=== PATIENT | male | born 1940 | race Caucasian/White ===

== ENCOUNTER 2022-08-04 12:31 | Outpatient (RCR) | payer MEDICARE, SELFPAY ==
--- NOTE | 2022-08-04 16:06 | PT.OPE ---
PT [place] [facility] Eval PT [facility] Out[facility] Eval Start: 08/04/22 12:48 Freq: Status: Active Protocol: Document 08/04/22 16:04 CJT (Rec: 08/04/22 16:06 CJT [id number]) E-signed By Walter Garcia PT Physical Therapy Outpatient Evaluation Insurance Information Recert Due Date 10/03/22 Insurance Name Medicare B Insurance Information/Comments Medicare Advantage Medical Diagnosis M25.551 - R hip pain Treating Diagnosis M25.551 - R hip pain Referring MD Arora, Rom CALDWELL Subjective Subjective Pt presents for evaluation of R hip pain following shoveling his driveway about 1 month ago. Pt was shoveling snow and notes he felt something click in his R hip and he could barely get into the house. The pain got worse over the next few days. Pain is worse in the AM. Pts pain remained unchanged for about three weeks an over the past week he has noted slight progress in his pain. pt points to his R lateral hip as the source of his pain and notes that the pain is made worse when going from sitting to standing. Pain Comments Date of Last Physician Visit 07/16/22 Current Work Status Retired Preferred Name Del Precautions Treatment Precautions/Contraindications Spouse: Heaven Therapy Limitations/Systems Review Not Limited Objective Other/Pertinent Objective Lumbar ROM Extension - 15 Flexion - can easily bend forward and reach toes R/L Side Bend - 15/15 *feels a pull on R when leaning to L R/L Rotation - mild impairments B R Hip ROM Flexion - 115 IR/ER - 27/15 Extension - <5 L Hip ROM Flexion - 115 IR/ER - 27/25 Extension - <5 R knee ROM - WNL L knee ROM - WNL R Hip Strength Flexion - 4+/5 MMT Abduction - 3+/5 MMT Adduction - 5/5 MMT IR - 5/5 MMT ER - 5/5 MMT Extension - 3+/5 MMT L Hip Strength Flexion - 5/5 MMT Abduction - 4+/5 MMT Adduction - 5/5 MMT IR - 5/5 MMT ER - 5/5 MMT Extension - 4-/5 MMT R knee Extension - 5/5 MMT R Knee Flexion - 5/5 MMT L knee Extension - 5/5 MMT L knee Flexion - 5/5 MMT R ankle DF - 5/5 MMT L ankle DF - 5/5 MMT Palpation: pt reports pain/ tenderness with palpation to R TFL, glute med, piriformis, and ITB Gait: uses 4WW, no gait deviations detected today Testing for disc herniation and radicular symptoms is negative today Assessment Assessment/Impression Pt is an 82 year old male who presents to OP PT clinic with complaints of R hip pain ongoing for about 1 month now after experiencing a pop in his R hip while shoveling his driveway. Pts pain is located in his R TFL region and is made worse when transitioning from sitting to standing. He denies numbness, tingling, weakness in the legs following the incident. Pts pain was unchanged for about 3 weeks and over the last week or so has started to slowly improve. Deficits are noted in pts strength and ROM of R>L LEs ( see objective). At this time it is not 100% clear what the source of Del's pain is, but it seem to be related to his R TFL muscle and/or possible strain to his R hamstring origin at ischial tuberosity. I do fear that he may have strained either or both of these muscles which has led to subsequent pain. Pts hip abduction and extension strength are quite weak so we will focus on strengthening and stretching his affected muscles and monitor his pain throughout therapy. I think some strengthening to B hips will do him some good for allowing these muscles to properly heal. The nature of the pts condition was explained and all questions were answered to the pts satisfaction. Skilled PT services are medically necessary to address deficits and return patient to highest level of function. Recommend physical therapy sessions 1-2/ week for 8 weeks. Pt and his Heaven agree with this plan. Printout of HEP was given for I completion and pt gives verbal understanding of each exercise. Primary Functional Limitations Standing, [id number] transfers Plan of Care Rehabilitation Potential Good Physical Therapy Goals STG - To be completed in 2-3 weeks: 1. Pt will report reduction in R hip pain by factor of 2 so that they may perform all ADLs with tolerable level of pain. 2. Pt will demonstrate ability to perform pelvic tilt with good coordination as indication of appropriate firing of pelvic and lumbar stabilizing muscles to provide greater support for pelvis and lumbar spine. 3. Pt will demonstrate 5/5 MMT for all LE motions without reproduction of pain to provide greater support to pelvis and lumbar spine. LTG - To be completed in 8-12 weeks: 1. Pt to be I with HEP so that they may I manage progression of symptoms. 2. Pt will report ability to sleep through the night without waking due to pain so that they may wake well rested with reduced mental fatigue during working hours. 3. Pt will report absence of anterolateral hip pain when transitioning from sitting to standing after prolonged period of sitting as indication of reduced strain on these soft tissue structures when in WB position . 4. Pt will demonstrate 5/5 MMT for both upper and lower abdominals to provide greater support to pelvis and lumbar spine. Treatment Plan/Direct Interventions Gait Training,Heat,Ice/Cold/ Vasopneumatic,Joint Mobilization,Manual Therapy, Neuromuscular Re-ed,Self-Care/ Home Management,Therapeutic Activities,Therapeutic Exercises Frequency/Duration 1-2/week for 8 weeks Patient Will Be Discharged From Therapy Completion of LTG(s),Skills Plateau,Independent w/HEP, Independently Progressing Evaluation Billing Untimed Code Treatment Minutes 35 PT Eval No Charge No Complexity Low Certification Information Initial Certification Date 08/04/22 Ending Certification Date 10/03/22 Provider Signature Shows Agreement With POC & Medical Necessity Physician Signature & Date Requested Please Sign/Date Here Physician Comment/Change : Physician NPI Number #
== END 2022-10-06 14:48 | disposition home or self-care (01) ==
PROVIDERS: PCP Internal Medicine; Visit Provider Internal Medicine
DX: M25.551 Pain in right hip (principal); Z51.89 Encounter for other specified aftercare
CPT/HCPCS: 97110; 97140; 97161

== ENCOUNTER 2022-10-15 13:07 | Outpatient (CLI) | payer MEDICARE, SELFPAY | END 2022-10-15 13:08 | disposition home or self-care (01) | PROVIDERS: PCP Internal Medicine; Visit Provider Internal Medicine | DX: Z00.00 Encounter for general adult medical examination without abnormal findings (principal); I10 Essential (primary) hypertension; Z12.5 Encounter for screening for malignant neoplasm of prostate; Z13.6 Encounter for screening for cardiovascular disorders | CPT/HCPCS: 80053; 80061; 84153 ==

== ENCOUNTER 2023-01-06 15:59 | Outpatient (CLI) | payer MEDICARE, SELFPAY | END 2023-01-06 16:00 | disposition home or self-care (01) | PROVIDERS: PCP Internal Medicine; Visit Provider Nurse Practitioner Family | DX: M79.10 Myalgia, unspecified site (principal); I10 Essential (primary) hypertension; G20 Parkinson's disease | CPT/HCPCS: 83519; 85651; 86140 ==

== ENCOUNTER 2024-12-22 09:26 | Outpatient (CLI) | payer MEDICARE, SELFPAY | END 2024-12-22 09:27 | disposition home or self-care (01) | LOC: NFLDREF 12-26 14:59 | PROVIDERS: PCP Internal Medicine; Referring Provider Internal Medicine; Visit Provider Internal Medicine | DX: E78.5 Hyperlipidemia, unspecified (principal); I10 Essential (primary) hypertension; Z12.5 Encounter for screening for malignant neoplasm of prostate | CPT/HCPCS: 80053; 80061; G0103 ==

== ENCOUNTER 2025-02-16 13:21 | Outpatient (CLI) | payer MEDICARE, SELFPAY | END 2025-02-16 13:22 | disposition home or self-care (01) | PROVIDERS: PCP Internal Medicine; Visit Provider Internal Medicine | DX: R53.83 Other fatigue; R82.90 Unspecified abnormal findings in urine; Z13.0 Encounter for screening for diseases of the blood and blood-forming organs and certain disorders involving the immune mechanism | CPT/HCPCS: 82728; 84443; 87086 ==

== ENCOUNTER 2025-06-23 09:34 | Inpatient (IN) | payer MEDICARE, SELFPAY ==
[2025-06-23] VITALS (28 sets, daily range): BP systolic 110–139; BP diastolic 53–86; PULSE 66–87; RESP 14–18; TEMP 37–37.5; O2SAT 92–100; BMI 26.6; BMI 23.1; BMI 23.2
--- NOTE | 2025-06-23 10:38 | ED.WEAKNESS ---
HPI - Weakness General Chief complaint: Weakness Stated complaint: weakness Time Seen by Provider: 06/23/25 10:31 History of Present Illness HPI Narrative: This 85-year-old male comes in with his because of worsening weakness over the past 2 or 3 days. He normally ambulates at home without a walker or assistance. He does have a walker at home and his states that she tried to have him use that last evening with some limited results. The patient does have Parkinson's. His reports incontinence of urine. She states that he is unable to get up and ambulate without assistance. He did come in by private vehicle. Other family members were able to assist him to get into the vehicle. He does not report any pain or injury event. His states that he seemed to be having decreased responses recently. There is no report of unilateral weakness but rather generalized weakness. Related Data Home Medications ?Medication ?Instructions ?Recorded ?Confirmed Lactobacillus cap PO DAILY 07/09/22 02/16/25 acidophilus-Bifidobac.animalis 31 billion cell capsule ibuprofen 200 mg tablet 200 mg PO Q6H PRN 07/09/22 02/16/25 multivitamin,tx-minerals 1 tab PO QDAY 07/09/22 02/16/25 naproxen 250 mg tablet 250 mg PO BID PRN 07/09/22 02/16/25 omega-3 fatty acids 1,000 mg 1,000 mg PO QDAY 07/09/22 06/23/25 capsule Previous Rx's ?Medication ?Instructions ?Recorded gabapentin 100 mg capsule 100 mg PO TID PRN Nerve Pain #60 01/19/23 caps gentamicin 0.3 % eye drops 3 drp otic (ear) TID #5 mL 11/11/23 amlodipine 5 mg tablet 5 mg PO QDAY #90 tabs 12/27/24 carbidopa 25 mg-levodopa 100 mg 1 tab PO 3XD Parkinson's #270 tabs 12/27/24 tablet hydrochlorothiazide 25 mg tablet 25 mg PO QDAY Hypertension #90 tabs 12/27/24 omeprazole 40 mg capsule,delayed 40 mg PO QDAY GERD #90 caps 12/27/24 release Allergies Allergy/AdvReac Type Severity Reaction Status Date / Time No Known Drug Allergies Allergy Verified 06/23/25 09:58 Review of Systems Status of ROS: Reports: 10 or more systems reviewed and unremarkable except as noted in History and below Narrative: Constitutional: No fevers, no weight gain or loss. Eyes: No discharge. No vision changes. HENT: No congestion, no sore throat, no ear pain. Cardiovascular: No chest pain, no palpitations. Respiratory: No shortness of breath, no wheezes, no cough. Gastrointestinal: No abdominal pain, no vomiting, no diarrhea. Genitourinary: Urinary incontinence. Musculoskeletal: Normal range of motion. Skin: No rashes, no pruritis. Neurological: No dizziness, sensory change, speech change. Generalized weakness as described above. Endo/Heme/Allergies: No bruising or bleeding. No polydipsia. Pysch: no suicidality, no anxiety, no insomnia. All other systems reviewed and are negative. [facility] Medical History (Updated 06/23/25 @ 12:33 by Irving Bean MD) Fatigue ?R53.83 - Other fatigue (ICD-10) GERD (gastroesophageal reflux disease) ?K21.9 - Gastro-esophageal reflux disease without esophagitis (ICD-10) Trochanteric bursitis ?M70.60 - Trochanteric bursitis, unspecified hip (ICD-10) Social History (Updated 12/27/24 @ 14:06 by Caitlin Carrillo ~ [facility]) What is your current living situation?: I presently have a place to live Problems where you live: no known problems In the past 12 months, utilities in danger of being shut off: no In past 12 months, lack of transportation kept you from medical appts, meetings, work, or getting things needed for daily living: no In the past 12 mos, have been you worried that your food would run out before you had money to buy more?: never true In the past 12 mos, the food you bought just didn't last and you didn't have money to buy more?: never true Smoking Status: Never smoker How often does anyone, including family, friends and others, physically hurt you: never How often does anyone, including family, friends and others, insult or talk down to you: never How often does anyone, including family, friends and others, threaten you with harm: never How often does anyone, including family, friends and others, scream or curse at you: never Exam Narrative: Exam Narrative: Constitutional: Well-developed, well-nourished, no acute distress. HEENT: Normocephalic, atraumatic. Neck: Normal range of motion. Nontender. Supple. Heart: Regular. No murmurs. Normal rate. Intact distal pulses. Lungs: Clear to auscultation. No chest discomfort. No wheezes, rhonchi, or rales. Abdomen: Normal bowel sounds. Nontender. No rebound tenderness. Genitalia: Deferred. Back: No midline tenderness. Normal range of motion. Extremities: Normal range of motion. No injury. Skin: Intact. No rash. Warm. No erythema or pallor. Neurologic: No altered sensation. No weakness. Alert and oriented. No facial asymmetry. Tongue is midline. [id number] is normal. No pronator drift. 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 Able to raise each leg from the bed. Parkinson's tremor is present. Psychiatric: No suicidality. No anxiety or depression. No insomnia. Nursing notes and vitals signs are reviewed. Const: Vital Signs, click to edit/add: Vital Signs - 24 hr 06/23/25 09:59 06/23/25 10:06 06/23/25 10:07 Temperature 99.5 F Pulse Rate 76 76 Pulse Rate [Pulse Oximeter] 84 Respiratory Rate 18 18 Blood Pressure 119/60 Blood Pressure [Le ft Upper Arm] 139/68 Pulse Oximetry 94 93 93 Oxygen Delivery Me thod Room Air 06/23/25 10:15 06/23/25 10:30 06/23/25 10:32 Temperature Pulse Rate 71 67 68 Pulse Rate [Pulse Oximeter] Respiratory Rate 16 Blood Pressure 110/58 L Blood Pressure [Le ft Upper Arm] Pulse Oximetry 93 93 93 Oxygen Delivery Me thod 06/23/25 10:45 06/23/25 11:00 06/23/25 11:02 Temperature Pulse Rate 72 68 69 Pulse Rate [Pulse Oximeter] Respiratory Rate 16 Blood Pressure 123/62 Blood Pressure [Le ft Upper Arm] Pulse Oximetry 94 95 95 Oxygen Delivery Me thod 06/23/25 11:19 06/23/25 12:00 Temperature 99.5 F Pulse Rate 73 Pulse Rate [Pulse Oximeter] Respiratory Rate Blood Pressure Blood Pressure [Le ft Upper Arm] Pulse Oximetry 95 Oxygen Delivery Me thod Course Vital Signs Vital signs: Initial Vital Signs Temperature 99.5 F 06/23/25 09:59 Temperature Source Temporal Artery Scan 12/26/25 09:59 Pulse Rate 84 06/23/25 09:59 Respiratory Rate 18 06/23/25 09:59 Blood Pressure 139/68 06/23/25 09:59 Blood Pressure Mean 91 06/23/25 09:59 Pulse Oximetry 94 06/23/25 09:59 Oxygen Delivery Method Room Air 06/23/25 09:59 Vital Signs Temperature 99.5 F 06/23/25 09:59 Pulse Rate 84 06/23/25 09:59 Respiratory Rate 18 06/23/25 09:59 Blood Pressure 139/68 06/23/25 09:59 Pulse Oximetry 94 06/23/25 09:59 Oxygen Delivery Method Room Air 06/23/25 09:59 Temperature 99.5 F 06/23/25 12:00 Pulse Rate 73 06/23/25 11:19 Respiratory Rate 16 06/23/25 11:02 Blood Pressure 123/62 06/23/25 11:02 Pulse Oximetry 95 06/23/25 11:19 Oxygen Delivery Method Room Air 06/23/25 09:59 MDM - Weakness MDM Narrative Medical decision making narrative: This 85-year-old male comes in with his because of worsening weakness over the past 2 or 3 days. The patient arrives with normal exam and has strength to raise each leg from the bed but is not able to get up and ambulate without assistance. Labs are acquired and returned with reassuring results except his sodium is low at 125. This may be contributing significantly enough to his weakness. Urinalysis returns without sign of infection. I did speak with the hospitalist on-call, Dr. Parkinson, who does agree to his admission into the hospital to replenish is sodium deficit. Lab Data Labs: Lab Results 06/23/25 06/23/25 06/23/25 Range/Units 10:06 10:55 11:15 WBC 7.96 (4.50-11.00) K/uL RBC 4.57 (4.30-5.90) m/uL Hgb 13.5 (13.5-17.5) gm/dL Hct 40.3 (37.0-53.0) % MCV 88 (80-100) fL MCH 30 (26-34) pg MCHC 34 (32-36) gm/dL RDW Coeff of Ashley 12.7 (11.5-15.5) % Plt Count 155 (140-440) K/uL Neut % (Auto) 83.2 H (42.0-72.0) % Lymph % (Auto) 5.8 L (20-44) % [place] % (Auto) 10.4 (0.0-11.0) % Eos % (Auto) 0.0 (0.0-7.0) % Baso % (Auto) 0.3 (0.0-3.0) % Neut # (Auto) 6.60 (1.7-7.0) K/uL Lymph # (Auto) 0.50 L (0.90-2.90) K/uL [place] # (Auto) 0.80 (0.00-0.90) K/UL Eos # (Auto) 0.00 (0.00-0.50) K/uL Baso # (Auto) 0.02 (0.00-0.30) K/uL Abs Immat Gran (auto) 0.02 (0.00-0.30) K/uL Imm/Tot Granulo (auto) 0.3 % Sodium 125 L (135-149) mmol/L Potassium 3.6 (3.6-5.1) mmol/L Chloride 91 L (96-114) mmol/L Carbon Dioxide 28 (20-32) mmol/L Anion Gap 6 L (7-15) mEq/L BUN 18 (7-30) mg/dL Creatinine 0.9 (0.5-1.5) mg/dL Estimated Creat Clear 49.58 Estimated GFR 83 ml/min Glucose 100 (60-115) mg/dL Calcium 8.7 (8.4-10.6) mg/dL Urine Color Rebecca A (Yellow) Urine Appearance Clear (Clear) Urine pH 6.0 (5.0-8.5) Ur Specific [place] 1.020 (1.000-1.030) Urine Protein 1+ A (Negative) Urine Glucose (UA) Negative (Negative) Urine Ketones 2+ A (Negative) Urine Blood Trace-intact A (Negative) Urine Nitrite Negative (Negative) Urine Bilirubin 1+ A (Negative) Urine Urobilinogen 1.0 (0.2-1.0) Ur Leukocyte Esterase Negative (Negative) Urine RBC 0-2 (0-2) Urine WBC 2-5 (0-5) Ur Squamous Epith Cells Few (None-Few) Urine Bacteria Few A (None) Fine Granular Casts Few A (None) SARS-CoV-2 (PCR) Negative SARS-CoV-2 (Negative) Influenza Type A (PCR) Negative PCR FLU A (Negative) Influenza Type B (PCR) Negative PCR FLU B (Negative) RSV (PCR) Negative PCR RSV (Negative) ECG Data Attestation: I personally reviewed and interpreted this ECG as follows: Interpretation: Normal sinus rhythm. Rate is 68 beats per minute. There are no ST or T-wave abnormalities. Discharge Plan Discharge Clinical Impression: Hyponatremia, Weakness Patient Disposition: Admitted As Observation Condition: Unchanged
[2025-06-23 10:50] LABS: PCR FLU A Negative PCR FLU A (Negative); PCR FLU B Negative PCR FLU B (Negative); PCR RSV Negative PCR RSV (Negative); SARS PCR* Negative SARS-CoV-2 (Negative)
[2025-06-23 11:06] LABS: Hematocrit* 40.3 % (37.0-53.0); Hemoglobin* 13.5 gm/dL (13.5-17.5); Immature Granulocytes Abs Auto 0.02 K/uL (0.00-0.30); Immature Granulocytes Pct Auto 0.3 %; Mean Corpuscular HGB Conc 34 gm/dL (32-36); Mean Corpuscular Hemoglobin 30 pg (26-34); Mean Corpuscular Volume 88 fL (80-100); RDW Coefficient of Variation % 12.7 % (11.5-15.5); Red Blood Count* 4.57 m/uL (4.30-5.90); White Blood Count* 7.96 K/uL (4.50-11.00)
[2025-06-23 11:13] LABS: Lymphocytes Absolute Auto 0.50 K/uL (0.90-2.90); Slide Review Reflex No
[2025-06-23 11:18] LABS: Chloride* 91 mmol/L (96-114); Potassium* 3.6 mmol/L (3.6-5.1); Sodium* 125 mmol/L (135-149)
[2025-06-23 11:21] LABS: Anion Gap 6 mEq/L (7-15); Blood Urea Nitrogen* 18 mg/dL (7-30); Calcium* 8.7 mg/dL (8.4-10.6); Carbon Dioxide* 28 mmol/L (20-32); Creatinine* 0.9 mg/dL (0.5-1.5); Est. Creatinine Clearance* 49.58; Estimated Glomerular Filt Rate 83 ml/min; Glucose* 100 mg/dL (60-115)
[2025-06-23 11:24] LABS: Appearance Urine Clear (Clear)
--- NOTE | 2025-06-23 14:32 | P.IMHP_ITS ---
Assessment and Plan Assessment and plan (1) Weakness: Problem comment: -generalized -no acute infectious etiology yet identified; CXR ordered; no change in mental status; may be in setting of acute hyponatremia -PT/OT consults Status: Acute (2) Dizziness: Problem comment: -chronic, acutely worsened, occurs with positional changes, resolves after a few minutes -no falls but close -orthostatics ordered Status: Acute (3) Cough: Problem comment: -just developed in past 24 hours, reported as mucus-y -afebrile, no leukocytosis, triple swab negative, no hypoxia or dyspnea -CXR ordered - no acute cardiopulmonary process Status: Acute (4) Hyponatremia: Problem comment: -Na 125, baseline 134 per limited EMR review -increased free water intake past few days, poor oral intake -fluid restriction 1500ml, protein supplements, 500cc NS bolus -hold HCTZ -recheck Na at 1900 Status: Acute (5) Parkinson's disease: Problem comment: -noted increased fatigue and slowed cognition per PCP EMR note 01/2025 -right side tremor -continue sinemet Status: Acute (6) Hypertension: Problem comment: -continue amlodipine -hold HCTZ iso hyponatremia Status: Acute (7) GERD (gastroesophageal reflux disease): Problem comment: -continue PPI Status: Acute Total Time Spent Total Time Spent: Today I spent 75 minutes seeing the patient, reviewing Expanse and EPIC notes/diagnostics, discussing the care plan with our care time that includes social work, PT/OT, pharmacy, RT, residential and documenting my impressions and plan in the medical record. 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 Patient is seen with and daughter at bedside. Reports increasing generalized weakness over the past 48 hours. Has been using his walker at home which he does not typically use. However, sounds like he should be as his gait is poor and he has had near falls. His reports his mobility and stability have slowly worsened since the summer. He denies any headaches over the past few days. Dizziness has been slightly worse than usual. Occurs with positional changes from sitting or lying to standing. Resolves within a few minutes. No vertiginous symptoms. No change in mental status. also reports slow cognitive decline, typically worse in the evenings. This was discussed with PCP back in January. Denies chest pain or tightness. No shortness of breath. Has developed a mucousy cough really in the past 24 hours. No fevers. Denies abdominal pain or nausea. No vomiting. No change in stools. Last BM was this morning. No blood noted in the stools. No change in urination. Frequency is about every hour. Was complaining of right leg pain earlier in the week but tells me this has resolved. No recent changes in medication. Uncertain of compliance with medications. Did try CBD gummies but was unable to tolerate these as a half of a gummy worsened his dizziness. PCP is Dr. Arora. last Medicare Annual exam was December 2024. Never smoked. Last alcohol drink was probably 20 years ago. Wishes to be DNR/DNI. Review of Systems Narrative: REVIEW OF SYSTEMS: Complete review of systems performed and negative unless otherwise stated in HPI or below. Medical Decision Making Medical Decision Making Code Status: DNR/DNI Has patient completed a Health Care Directive: No During This Stay, Who Would You Like To Make Decisions For You In The Event You Are Unable To Make Them For Yourself?: PFSH PFS Medical History Dizziness ?R42 - Dizziness and giddiness (ICD-10) Fatigue ?R53.83 - Other fatigue (ICD-10) GERD (gastroesophageal reflux disease) ?K21.9 - Gastro-esophageal reflux disease without esophagitis (ICD-10) Trochanteric bursitis ?M70.60 - Trochanteric bursitis, unspecified hip (ICD-10) Social History What is your current living situation?: I presently have a place to live Problems where you live: no known problems In the past 12 months, utilities in danger of being shut off: no In past 12 months, lack of transportation kept you from medical appts, meetings, work, or getting things needed for daily living: no In the past 12 mos, have been you worried that your food would run out before you had money to buy more?: never true In the past 12 mos, the food you bought just didn't last and you didn't have money to buy more?: never true Highest level of school completed/degree received: some college, no degree Smoking Status: Never smoker Do you use any of these nicotine containing products: None Second hand tobacco smoke exposure: No How often do you have a drink containing alcohol: never How often do you have six or more drinks on one occasion: Never AUDIT-C Alcohol total score: 0 Non-prescribed substance use: denies use Caffeine: No How often does anyone, including family, friends and others, physically hurt you : never How often does anyone, including family, friends and others, insult or talk down to you: never How often does anyone, including family, friends and others, threaten you with harm: never How often does anyone, including family, friends and others, scream or curse at you: never service: No Meds Home Medications and Allergies Home Medications ?Medication ?Instructions ?Recorded ?Confirmed ?Type Lactobacillus 1 cap PO DAILY 07/09/2205/30 History acidophilus-Bifidobac.animalis 31 billion cell capsule multivitamin,tx-minerals 1 tab PO DAILY 07/09/2205/30 History omega-3 fatty acids 1,000 mg 1,000 mg PO DAILY 3 06/23/25 History capsule amlodipine 5 mg tablet 5 mg PO QDAY #90 tabs 06/23/25 Rx carbidopa 25 mg-levodopa 100 mg 1 tab PO 3XD Parkinson 's #270 tabs 12/27/24 06/23/25 Rx tablet hydrochlorothiazide 25 mg tablet 25 mg PO DAILY Hypert ension 06/23/25 06/23/25 History omeprazole 40 mg capsule,delayed 40 mg PO DAILY GERD 1 08/24/24 06/23/25 History release Allergies Allergy/AdvReac Type Severity Reaction Status Date / Time No Known Drug Allergies Allergy Verified 06/23/25 09:58 Exam Narrative: Exam Narrative: PHYSICAL EXAM General: Pleasant, Appropriately conversant, NAD HEENT: Normocephalic, atraumatic, sclera white, EOMI, oral mucosa moist Cardiovascular: RRR, S1S2. No pitting edema Pulmonary: CTA bilaterally without rhonchi, rales, expiratory wheezes. No dyspnea on room air Abdominal: Soft, nondistended, NTTP Neurological: Alert, answering questions appropriately so slightly slowed, cranial nerves intact, no focal findings Extremities: No gross joint deformity or swelling. AROMI. no palpable tenderness. Negative Homans. Neurovascularly intact Skin: Warm, dry. Const: Vital Signs, click to edit/add: Vital Signs - 24 hr 06/23/25 09:59 06/23/25 10:06 06/23/25 10:07 Temperature 99.5 F Pulse Rate 76 76 Pulse Rate [Pulse Oximeter] 84 Respiratory Rate 18 18 Blood Pressure 119/60 Blood Pressure [Le ft Upper Arm] 139/68 Pulse Oximetry 94 93 93 Oxygen Delivery Me thod Room Air 06/23/25 10:15 06/23/25 10:30 06/23/25 10:32 Temperature Pulse Rate 71 67 68 Pulse Rate [Pulse Oximeter] Respiratory Rate 16 Blood Pressure 110/58 L Blood Pressure [Le ft Upper Arm] Pulse Oximetry 93 93 93 Oxygen Delivery Me thod 06/23/25 10:45 06/23/25 11:00 06/23/25 11:02 Temperature Pulse Rate 72 68 69 Pulse Rate [Pulse Oximeter] Respiratory Rate 16 Blood Pressure 123/62 Blood Pressure [Le ft Upper Arm] Pulse Oximetry 94 95 95 Oxygen Delivery Me thod 06/23/25 11:19 06/23/25 11:30 06/23/25 11:32 Temperature Pulse Rate 73 69 69 Pulse Rate [Pulse Oximeter] Respiratory Rate 18 Blood Pressure 120/61 Blood Pressure [Le ft Upper Arm] Pulse Oximetry 95 92 94 Oxygen Delivery Me thod 06/23/25 11:45 06/23/25 12:00 06/23/25 12:00 Temperature 99.5 F Pulse Rate 66 68 Pulse Rate [Pulse Oximeter] Respiratory Rate Blood Pressure Blood Pressure [Le ft Upper Arm] Pulse Oximetry 92 96 Oxygen Delivery Me thod 06/23/25 12:02 06/23/25 12:15 06/23/25 12:30 Temperature Pulse Rate 67 67 80 Pulse Rate [Pulse Oximeter] Respiratory Rate 16 Blood Pressure 119/60 Blood Pressure [Le ft Upper Arm] Pulse Oximetry 94 94 95 Oxygen Delivery Me thod 06/23/25 12:37 06/23/25 12:38 06/23/25 12:45 Temperature Pulse Rate 79 75 Pulse Rate [Pulse Oximeter] Respiratory Rate Blood Pressure 138/65 Blood Pressure [Le ft Upper Arm] Pulse Oximetry 95 96 Oxygen Delivery [facility] 06/23/25 13:00 06/23/25 13:02 06/23/25 13:15 Temperature Pulse Rate 72 72 72 Pulse Rate [Pulse Oximeter] Respiratory Rate 18 Blood Pressure 123/62 Blood Pressure [Le ft Upper Arm] Pulse Oximetry 95 94 95 Oxygen Delivery [facility] Hospitalist - H&P: Result Labs Labs: Short CBC 06/23/25 Range/Units 10:55 WBC 7.96 (4.50-11.00) K/uL Hgb 13.5 (13.5-17.5) gm/dL Hct 40.3 (37.0-53.0) % Plt Count 155 (140-440) K/uL BMP 06/23/25 10:55 Sodium 125 L Potassium 3.6 Chloride 91 L Carbon Dioxide 28 BUN 18 Creatinine 0.9 Glucose 100 Calcium 8.7 Urine 06/23/25 Range/Units 11:15 Urine Color Rebecca A (Yellow) Urine Appearance Clear (Clear) Urine pH 6.0 (5.0-8.5) Ur Specific [place] 1.020 (1.000-1.030) Urine Protein 1+ A (Negative) Urine Glucose (UA) Negative (Negative) ECG Attestation: I personally reviewed and interpreted this ECG as follows: Interpretation: NSR, left anterior fascicular block, ventricular rate 68, QTC 416 Imaging Chest x-ray: Attestation: I have reviewed the pertinent imaging results. Radiologist's impression: The cardiomediastinal silhouette and pulmonary vasculature are unremarkable. There is no focal airspace consolidation, pleural effusion, or pneumothorax. No displaced fractures. Degenerative changes of the shoulders and spine. IMPRESSION: No acute cardiopulmonary process.
--- NOTE | 2025-06-23 14:57 | CRLHL7_ITS ---
For Patients: As a result of the Cures Act, medical imaging exams and procedure reports are released immediately into your electronic medical record. You may view this report before your referring provider. If you have questions, please contact your health care provider. INDICATION: : WEAKNESS, COUGH POSSIBLE INFILTRATE COMPARISON: None TECHNIQUE: One view(s) of the chest FINDINGS: The cardiomediastinal silhouette and pulmonary vasculature are unremarkable. There is no focal airspace consolidation, pleural effusion, or pneumothorax. No displaced fractures. Degenerative changes of the shoulders and spine. IMPRESSION: No acute cardiopulmonary process. Dictated by Rajeev Anne MD @ 06/23/2025 3:24:21 PM (Electronically Signed)
[2025-06-23] MEDS: CARBIDOPA-LEVODOPA 25-100 TABLET 1 TAB PO ×2 (15:30→21:28)
[2025-06-23] MEDS: 0.9 % SODIUM CHLORIDE 500 ML 500 ML 250 ML IV (15:30)
[2025-06-23 19:45] LABS: Sodium* 126 mmol/L (135-149)
[2025-06-23] MEDS: AMLODIPINE 5 MG TABLET PO (21:28)
[2025-06-23] MEDS: ENOXAPARIN 40 MG/0.4 ML INJ SUBCUT (21:28)
[2025-06-23] MEDS: SODIUM CHLORIDE 0.9 % (FLUSH) 10 ML SYRINGE 5 ML IVF (21:28)
--- NOTE | 2025-06-23 22:48 | PC.NURSE ---
Shift note: The pt has been alert and oriented x3-4; appeared forgetful. Denied chest pain and short of breath; Spo2 has been in the 90s in RA. The pt appeared weak; c/o mild dizzy when standing. Tremors noted on upper extremities. Incontinent of urine, changed and cleaned twice this shift; the pt has been resting without any acute distress throughout the shift.
[2025-06-24] VITALS (10 sets, daily range): BP systolic 95–159; BP diastolic 56–85; PULSE 65–83; RESP 16–18; TEMP 36.8–37.3; O2SAT 93–96
[2025-06-24] MEDS: ACETAMINOPHEN 325 MG TABLET PO (01:22)
[2025-06-24] MEDS: SODIUM CHLORIDE 1 GM TABLET PO ×4 (01:22→17:27)
[2025-06-24 02:55] LABS: Sodium* 126 mmol/L (135-149)
[2025-06-24] MEDS: OMEPRAZOLE 20 MG CAPSULE DR 40 MG PO (06:28)
[2025-06-24 07:16] LABS: Hematocrit* 38.7 % (37.0-53.0); Hemoglobin* 13.0 gm/dL (13.5-17.5); Mean Corpuscular HGB Conc 34 gm/dL (32-36); Mean Corpuscular Hemoglobin 30 pg (26-34); Mean Corpuscular Volume 89 fL (80-100); Red Blood Count* 4.37 m/uL (4.30-5.90); White Blood Count* 5.96 K/uL (4.50-11.00)
[2025-06-24 07:28] LABS: Slide Review Reflex No
[2025-06-24 07:30] LABS: Chloride* 94 mmol/L (96-114); Potassium* 3.1 mmol/L (3.6-5.1)
[2025-06-24 07:33] LABS: Blood Urea Nitrogen* 15 mg/dL (7-30); Calcium* 8.5 mg/dL (8.4-10.6); Carbon Dioxide* 27 mmol/L (20-32); Creatinine* 0.8 mg/dL (0.5-1.5); Est. Creatinine Clearance* 54.30; Estimated Glomerular Filt Rate 86 ml/min; Glucose* 83 mg/dL (60-115)
--- NOTE | 2025-06-24 07:40 | PC.NURSE ---
End of shift report [id number]: VSS. Pt has intermittent forgetfulness.?On RA. Denies pain. Pt ambulates 1-2A,?utilized?the BSC/urinal overnight. Pt is?cont?of urine. Pt is up in the chair, chair alarm on.?
[2025-06-24 08:13] LABS: Anion Gap 6 mEq/L (7-15); Sodium* 127 mmol/L (135-149)
[2025-06-24] MEDS: CARBIDOPA-LEVODOPA 25-100 TABLET 1 TAB PO ×3 (08:17→20:38)
[2025-06-24] MEDS: SODIUM CHLORIDE 0.9 % (FLUSH) 10 ML SYRINGE 5 ML IVF ×2 (08:18→20:38)
--- NOTE | 2025-06-24 15:56 | PM.IMPN1 ---
Assessment and Plan Assessment and plan (1) Weakness: Problem comment: -generalized -no acute infectious etiology yet identified; CXR ordered; no change in mental status; may be in setting of acute hyponatremia -PT/OT consults Status: Acute (2) Dizziness: Problem comment: -chronic, acutely worsened, occurs with positional changes, resolves after a few minutes -no falls but close -orthostatics ordered Status: Acute (3) Cough: Problem comment: -just developed in past 24 hours, reported as mucus-y -afebrile, no leukocytosis, triple swab negative, no hypoxia or dyspnea -CXR ordered - no acute cardiopulmonary process Status: Acute (4) Hyponatremia: Problem comment: -Na 125, baseline 134 per limited EMR review -increased free water intake past few days, poor oral intake -fluid restriction 1500ml, protein supplements, 500cc NS bolus -hold HCTZ -monitor sodium -educated patient, , daughter Status: Acute (5) Parkinson's disease: Problem comment: -noted increased fatigue and slowed cognition per PCP EMR note 01/2025 -right side tremor -continue sinemet Status: Acute (6) Hypertension: Problem comment: -continue amlodipine -hold HCTZ iso hyponatremia Status: Acute (7) GERD (gastroesophageal reflux disease): Problem comment: -continue PPI Status: Acute Plan 1. Reviewed impression, plans, recommendations with patient, , daughter 2. Answered their questions to their satisfaction 3. 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 ?Patient is seen with and daughter at bedside. Reports increasing generalized weakness over the past 48 hours. Has been using his walker at home which he does not typically use. However, sounds like he should be as his gait is poor and he has had near falls. His reports his mobility and stability have slowly worsened since the summer. He denies any headaches over the past few days. Dizziness has been slightly worse than usual. Occurs with positional changes from sitting or lying to standing. Resolves within a few minutes. No vertiginous symptoms. No change in mental status. also reports slow cognitive decline, typically worse in the evenings. This was discussed with PCP back in January. Denies chest pain or tightness. No shortness of breath. Has developed a mucousy cough really in the past 24 hours. No fevers. Denies abdominal pain or nausea. No vomiting. No change in stools. Last BM was this morning. No blood noted in the stools. No change in urination. Frequency is about every hour. Was complaining of right leg pain earlier in the week but tells me this has resolved. No recent changes in medication. Uncertain of compliance with medications. Did try CBD gummies but was unable to tolerate these as a half of a gummy worsened his dizziness. ?PCP is Dr. Arora. last Medicare Annual exam was December 2024. Never smoked. Last alcohol drink was probably 20 years ago. Wishes to be DNR/DNI.? 06/24/2025, hospital day 2. He starting to feel stronger. Able to help with transfers today whereas yesterday he was not. Appetite normalizing. Sodium on admission was 125 and is now up to 127. Spent 20 minutes simply discussing with patient, , daughter pathophysiology of fluid and sodium equilibrium. Exam Narrative: Exam Narrative: Examine him in his hospital room when he is sitting on recliner chair at the side of the bed as well as when he is laying in bed. Appears comfortable in no acute distress. Interactive and talkative. Lungs are clear to auscultation. Heart tones with regular rhythm. Abdomen benign. Resting pill rolling tremor. Const: Vital Signs, click to edit/add: Vital Signs - 24 hr 06/23/25 16:00 06/23/25 16:00 06/23/25 18:00 Temperature 37.1 C Pulse Rate Pulse Rate [Right Pulse Oximeter] 74 73 Pulse Rate [orthos tatic lying Right Brachial] 75 Pulse Rate [orthos tatic sitting Righ t Femoral] 74 Pulse Rate [orthos tatic standing Rig ht Brachial] 87 Respiratory Rate 16 14 Blood Pressure [Ri ght Arm] 130/59 L Blood Pressure [or thostatic lying Ri ght Arm] 126/86 Blood Pressure [or thostatic sitting] 127/61 Blood Pressure [or thostatic standing Right Arm] 114/53 L Pulse Oximetry 95 Oxygen Delivery Me thod Room Air 06/23/25 22:00 06/23/25 23:00 06/24/25 01:03 Temperature 37.3 C Pulse Rate 72 Pulse Rate [Right Pulse Oximeter] 83 83 Pulse Rate [orthos tatic lying Right Brachial] Pulse Rate [orthos tatic sitting Righ t Femoral] Pulse Rate [orthos tatic standing Rig ht Brachial] Respiratory Rate 16 Blood Pressure [Ri ght Arm] 159/85 H Blood Pressure [or thostatic lying Ri ght Arm] Blood Pressure [or thostatic sitting] Blood Pressure [or thostatic standing Right Arm] Pulse Oximetry 96 Oxygen Delivery Me thod Room Air 06/24/25 04:13 06/24/25 05:00 06/24/25 07:00 Temperature 36.8 C Pulse Rate 70 Pulse Rate [Right Pulse Oximeter] 70 68 Pulse Rate [orthos tatic lying Right Brachial] Pulse Rate [orthos tatic sitting Righ t Femoral] Pulse Rate [orthos tatic standing Rig ht Brachial] Respiratory Rate 18 16 Blood Pressure [Ri ght Arm] 116/68 Blood Pressure [or thostatic lying Ri ght Arm] Blood Pressure [or thostatic sitting] Blood Pressure [or thostatic standing Right Arm] Pulse Oximetry 94 Oxygen Delivery Me thod Room Air 06/24/25 07:00 06/24/25 07:00 06/24/25 11:00 Temperature 36.8 C 36.8 C Pulse Rate 66 Pulse Rate [Right Pulse Oximeter] 68 67 Pulse Rate [orthos tatic lying Right Brachial] Pulse Rate [orthos tatic sitting Righ t Femoral] Pulse Rate [orthos tatic standing Rig ht Brachial] Respiratory Rate 16 16 Blood Pressure [Ri ght Arm] 102/63 120/60 Blood Pressure [or thostatic lying Ri ght Arm] Blood Pressure [or thostatic sitting] Blood Pressure [or thostatic standing Right Arm] Pulse Oximetry 95 96 Oxygen Delivery Me thod Room Air Room Air Labs Labs: Laboratory Results - last 24 hr 06/23/25 06/24/25 06/24/25 18:58 02:02 06:20 WBC 5.96 RBC 4.37 Hgb 13.0 L Hct 38.7 MCV 89 MCH 30 MCHC 34 Plt Count 155 Sodium 126 L 126 L 127 L Potassium 3.1 L Chloride 94 L Carbon Dioxide 27 Anion Gap 6 L BUN 15 Creatinine 0.8 Estimated Creat Clear 54.30 Estimated GFR 86 Glucose 83 Calcium 8.5
[2025-06-24] MEDS: POTASSIUM BICARB 25 MEQ EFFERVESCENT TAB 50 MEQ PO (17:26)
[2025-06-24] MEDS: AMLODIPINE 5 MG TABLET PO (20:37)
[2025-06-24] MEDS: ENOXAPARIN 40 MG/0.4 ML INJ SUBCUT (20:38)
--- NOTE | 2025-06-24 23:00 | PC.NURSE ---
Nursing Care Hours: [id number] Pt this shift calm and cooperative, sleepy and oriented. No c/o pain. Initial BP soft, but retest x2 and wnl. Tremor to R side UE.
--- NOTE | 2025-06-24 23:02 | PC.NURSE ---
Nursing Care Hours: [id number] Pt this shift calm and cooperative. Denies pain. remained in bed this shift, ready to sleep.
[2025-06-25 03:00] VITALS: BP 126/93; PULSE 65; RESP 20; TEMP 37.1; O2SAT 92
--- NOTE | 2025-06-25 05:48 | PC.NURSE ---
End of shift Note 259? ? Patient has?been pleasant and cooperative throughout shift. A&O with intermittent confusion. VSS. Afebrile. Assist of 1 with walker and gait belt.??Call light within reach.? ?
[2025-06-25] MEDS: OMEPRAZOLE 20 MG CAPSULE DR 40 MG PO (06:54)
[2025-06-25 07:00] VITALS: BP 101/71; PULSE 59; RESP 18; TEMP 36.8; O2SAT 94
[2025-06-25 07:28] LABS: Hematocrit* 39.3 % (37.0-53.0); Hemoglobin* 13.0 gm/dL (13.5-17.5); Mean Corpuscular HGB Conc 33 gm/dL (32-36); Mean Corpuscular Hemoglobin 30 pg (26-34); Mean Corpuscular Volume 90 fL (80-100); Red Blood Count* 4.39 m/uL (4.30-5.90); White Blood Count* 4.50 K/uL (4.50-11.00)
[2025-06-25 07:31] LABS: Slide Review Reflex No
[2025-06-25 07:39] LABS: Chloride* 95 mmol/L (96-114)
[2025-06-25 07:40] LABS: Potassium* 3.2 mmol/L (3.6-5.1); Sodium* 128 mmol/L (135-149)
[2025-06-25 07:43] LABS: Anion Gap 3 mEq/L (7-15); Blood Urea Nitrogen* 15 mg/dL (7-30); Calcium* 8.5 mg/dL (8.4-10.6); Carbon Dioxide* 30 mmol/L (20-32); Creatinine* 0.8 mg/dL (0.5-1.5); Est. Creatinine Clearance* 56.48; Estimated Glomerular Filt Rate 86 ml/min; Glucose* 86 mg/dL (60-115)
[2025-06-25] MEDS: SODIUM CHLORIDE 0.9 % (FLUSH) 10 ML SYRINGE 5 ML IVF (09:42)
[2025-06-25] MEDS: SODIUM CHLORIDE 1 GM TABLET PO ×2 (09:42→12:10)
[2025-06-25] MEDS: POTASSIUM CHLORIDE 10 MEQ CAPSULE ER 20 MEQ PO (09:42)
[2025-06-25] MEDS: CARBIDOPA-LEVODOPA 25-100 TABLET 1 TAB PO (09:42)
[2025-06-25 11:00] VITALS: BP 118/58; PULSE 68; RESP 18; TEMP 37.1; O2SAT 98
[2025-06-25] MEDS: POTASSIUM BICARB 25 MEQ EFFERVESCENT TAB 50 MEQ PO (12:10)
--- NOTE | 2025-06-25 13:38 | PC.NURSE ---
The patient discharged home with his and daughter this afternoon. S/S of severe hyponatremia and severe hypokalemia were reviewed. New medications were reviewed as well. All belongings were sent with the patient. Elsa ANGUIANO BSN
--- NOTE | 2025-06-25 16:16 | PM.DS1 ---
DS: Providers Provider Date Seen: 06/25/25 Date of admission: 06/23/25 14:52 Primary care physician: Rom Arora MD Admitting Clinician: Remigio Parkinson MD Consults: 06/23/25 14:52 Consult to Occupational Therapy [CONS] Routine Comment: Reason(s) for OT Consult:: Evaluate and Treat Any Restrictions?:: No Restrictions Consult to Physical Therapy [CONS] Routine Comment: Reason(s) for PT Consult:: Evaluate and Treat Any Restrictions?:: No Restrictions Attending Physician on discharge: Remigio Parkinson MD Date of Discharge: 06/25/25 DS: Diagnosis Discharge Diagnosis (1) Weakness: Status: Acute Problem details: -generalized -no acute infectious etiology yet identified; CXR ordered; no change in mental status; may be in setting of acute hyponatremia -PT/OT consults (2) Hyponatremia: Status: Acute Problem details: -Na 125, baseline 134 per limited EMR review -increased free water intake past few days, poor oral intake -fluid restriction 1500ml, protein supplements, 500cc NS bolus -hold HCTZ -monitor sodium -educated patient, , daughter -sodium improving, 128 on date of discharge, will need additional follow-up hereafter with ongoing fluid restriction and holding hydrochlorothiazide (3) Dizziness: Status: Acute Problem details: -chronic, acutely worsened, occurs with positional changes, resolves after a few minutes -no falls but close -orthostatics ordered (4) Cough: Status: Acute Problem details: -just developed in past 24 hours, reported as mucus-y -afebrile, no leukocytosis, triple swab negative, no hypoxia or dyspnea -CXR ordered - no acute cardiopulmonary process (5) Parkinson's disease: Status: Acute Problem details: -noted increased fatigue and slowed cognition per PCP EMR note 01/2025 -right side tremor -continue sinemet (6) Hypertension: Status: Acute Problem details: -continue amlodipine -hold HCTZ iso hyponatremia DS: Summary Hospital Course Hospital Course: Admission history of present illness: ?85 year old male Past medical history significant for Parkinson's, dizziness,hypertension, GERD, 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 ?Patient is seen with and daughter at bedside. Reports increasing generalized weakness over the past 48 hours. Has been using his walker at home which he does not typically use. However, sounds like he should be as his gait is poor and he has had near falls. His reports his mobility and stability have slowly worsened since the summer. He denies any headaches over the past few days. Dizziness has been slightly worse than usual. Occurs with positional changes from sitting or lying to standing. Resolves within a few minutes. No vertiginous symptoms. No change in mental status. also reports slow cognitive decline, typically worse in the evenings. This was discussed with PCP back in January. Denies chest pain or tightness. No shortness of breath. Has developed a mucousy cough really in the past 24 hours. No fevers. Denies abdominal pain or nausea. No vomiting. No change in stools. Last BM was this morning. No blood noted in the stools. No change in urination. Frequency is about every hour. Was complaining of right leg pain earlier in the week but tells me this has resolved. No recent changes in medication. Uncertain of compliance with medications. Did try CBD gummies but was unable to tolerate these as a half of a gummy worsened his dizziness. ?PCP is Dr. Arora. last Medicare Annual exam was December 2024. Never smoked. Last alcohol drink was probably 20 years ago. Wishes to be DNR/DNI.? 06/24/2025, hospital day 2. He starting to feel stronger. Able to help with transfers today whereas yesterday he was not. Appetite normalizing. Sodium on admission was 125 and is now up to 127. Spent 20 minutes simply discussing with patient, , daughter pathophysiology of fluid and sodium equilibrium. On date of discharge sodium is up to 128. Patient no longer weak as he was on presentation. Tolerating all treatment efforts. Follow up as specified. Time Spent with Patient Time attestation: Total time spent providing and/or coordinating discharge services: Exam Narrative: Exam Narrative: Examine him in his hospital room when he is sitting on recliner chair at the side of the bed as well as when he is laying in bed. Appears comfortable in no acute distress. Interactive and talkative. Lungs are clear to auscultation. Heart tones with regular rhythm. Abdomen benign. Resting pill rolling tremor. Transfers and ambulates with standby assist only, patient and family note he is back to baseline Const: Vital Signs, click to edit/add: Vital Signs - 24 hr 06/24/25 19:43 06/24/25 20:33 06/24/25 20:33 Temperature 37.2 C Pulse Rate 71 Pulse Rate [Right Pulse Oximeter] 65 Respiratory Rate 18 Blood Pressure [Le ft Arm] 135/66 Blood Pressure [Ri ght Arm] 95/56 L 127/66 Pulse Oximetry 93 Oxygen Delivery Me thod Room Air 06/24/25 21:39 06/24/25 23:00 06/24/25 23:00 Temperature 36.8 C Pulse Rate 69 Pulse Rate [Right Pulse Oximeter] 65 65 Respiratory Rate 18 18 Blood Pressure [Le ft Arm] Blood Pressure [Ri ght Arm] 129/85 Pulse Oximetry 95 Oxygen Delivery Me thod Room Air 06/25/25 03:00 06/25/25 07:00 06/25/25 07:00 Temperature 37.1 C 36.8 C Pulse Rate 59 L Pulse Rate [Right Pulse Oximeter] 65 Respiratory Rate 20 18 Blood Pressure [Le ft Arm] 101/71 Blood Pressure [Ri ght Arm] 126/93 H Pulse Oximetry 92 94 Oxygen Delivery Me thod Room Air Room Air 06/25/25 11:00 Temperature 37.1 C Pulse Rate Pulse Rate [Right Pulse Oximeter] 68 Respiratory Rate 18 Blood Pressure [Le ft Arm] 118/58 L Blood Pressure [Ri ght Arm] Pulse Oximetry 98 Oxygen Delivery Me thod Room Air DS: Data Data Completed and Pending Labs on day of discharge: Labs from last 24 hours 06/25/25 06:30 WBC 4.50 RBC 4.39 Hgb 13.0 L Hct 39.3 MCV 90 MCH 30 MCHC 33 Plt Count 152 Sodium 128 L Potassium 3.2 L Chloride 95 L Carbon Dioxide 30 Anion Gap 3 L BUN 15 Creatinine 0.8 Estimated Creat Clear 56.48 Estimated GFR 86 Glucose 86 Calcium 8.5 Discharge Plan Discharge Disposition: Home, Self-Care Date of Admission: 06/23/25 14:52 Attending Provider on Discharge: Remigio Parkinson Primary Care Provider: Rom Arora Condition: Improved Anticipated Discharge Date/Time: 06/25/25 12:30 Discharge Medications: New potassium chloride 10 mEq Capsule, Extended Release 20 meq PO BIDWM 30 Days Qty: 60 1RF gabapentin 100 mg Capsule 100 mg PO TID PRN (Reason: Nerve Pain) 30 Days Qty: 90 1RF sodium chloride 1,000 mg Tablet,Soluble 1,000 mg PO TIDWM 30 Days Qty: 90 1RF Continued carbidopa-levodopa 25-100 mg tablet 1 tab PO 3XD Qty: 270 3RF amlodipine 5 mg tablet 5 mg PO QDAY Qty: 90 2RF L. acidophilus-Bifid. animalis 31 billion cell capsule 1 cap PO DAILY omega-3 fatty acids 1,000 mg capsule 1,000 mg PO DAILY multivitamin,tx-minerals Tablet 1 tab PO DAILY omeprazole 40 mg capsule,delayed release(DR/EC) 40 mg PO DAILY Discontinued hydrochlorothiazide 25 mg tablet 25 mg PO DAILY Discharge Orders: Discharge Order (Routine); Ordered 06/25/25 Ordered By: Remigio Parkinson Patient Education: Potassium Chloride (By mouth), Gabapentin (By mouth), Sodium Chloride (By mouth), Potassium Content of Foods List (DC), Hyponatremia (DC), Hypokalemia (DC) Additional Instructions: 1. Stop hydrochlorothiazide medication due to medication causing low sodium and potassium 2. Follow-up with primary out of school hours care worker in 3-10 days with previsit basic metabolic panel and consideration need to possibly start loop diuretic in place of thiazide diuretic which caused low sodium and potassium 3. Return to clinic or hospital sooner if needed Activity Level: No Restrictions, Activity as Tolerated and Use Walker Discharge Diet: Regular Follow Up Appointments: Rom Arora MD [Primary Care Provider, Internal Medicine] - 07/06/25 2:00 pm Referral Note: [facility] for hospital follow-up. Forms: [employer] Info Instructions
== END 2025-06-25 13:00 | disposition home or self-care (01) | DRG 641 ==
LOC: ED 12:41 → MEDSURG 13:44
PROVIDERS: Physician Assistant; Admitting Provider Internal Medicine; Emergency Provider Emergency Medicine Emergency Medical Services; PCP Internal Medicine; Visit Provider Internal Medicine
DX: E87.1 Hypo-osmolality and hyponatremia (principal); R05.9 Cough, unspecified; R42 Dizziness and giddiness; G20.A1 Parkinson's disease without dyskinesia, without mention of fluctuations; R53.1 Weakness; R32 Unspecified urinary incontinence; K21.9 Gastro-esophageal reflux disease without esophagitis; I10 Essential (primary) hypertension; C67.9 Malignant neoplasm of bladder, unspecified
CPT/HCPCS: 36415; 71045; 80048; 81001; 84295; 85025; 85027; 87086; 87631; 93005; 97116; 97161; 97165; 99284; 99285; A9270; J1650; J7030